=== PATIENT | female | born 1955 | race Caucasian/White ===

== ENCOUNTER 2017-03-29 14:37 | Inpatient (IN) | payer MEDICAID ==
[~2017-03-29] VITALS: Ht 160 cm; Wt 73.5 kg
[2017-03-29 14:39] VITALS: BP 186/81
[2017-03-29] MEDS ORDERED: FLUO-387 PO (14:43)
[2017-03-29] MEDS ORDERED: ORE25 PO (14:43)
[2017-03-29] MEDS ORDERED: ALBUTEROL 0.083% 2.5 MG/3 ML NEBU INH ONE ×3 (14:45→18:10)
[2017-03-29] MEDS ORDERED: IPRATROPIUM 0.02% 0.5 MG/2.5 ML NEBU INH ONE ×3 (14:45→18:10)
[2017-03-29 14:59] LABS: HEMATOCRIT 42.3 % (36-48); HEMOGLOBIN 13.6 g/dL (12.0-16.0); MEAN CORPUSCULAR HEMOGLOBIN 29 pg (27-31); MEAN CORPUSCULAR HGB CONC 32 g/dL (33-37); MEAN CORPUSCULAR VOLUME 90 fL (80-94); PLATELET COUNT (AUTO) 321 K/uL (140-450); RED BLOOD CELL COUNT(AUTO) 4.69 MIL/uL (4.20-5.40); RED CELL DISTRIBUTION WIDTH 12.5 % (11.6-13.7); WHITE BLOOD COUNT (AUTO) 17.2 K/uL (4.8-10.8)
[2017-03-29 15:10] LABS: BAND % (MANUAL) 8 % (0-8); EOSINOPHILS % (MANUAL) 3 % (0-4); LYMPHOCYTES % (MANUAL) 8 % (20-46); MONOCYTES % (MANUAL) 3 % (5-12); NEUTROPHILS % (MANUAL) 78 (43-65)
[2017-03-29 15:11] LABS: ANION GAP 11.4 (8-16); CALCIUM 9.7 mg/dL (8.5-10.1); CARBON DIOXIDE 29.3 mmol/L (21-32); CREATININE 0.8 mg/dL (0.6-1.3); POTASSIUM 3.7 mmol/L (3.5-5.1)
[2017-03-29 15:17] LABS: ALBUMIN 4.1 g/dL (3.4-5.0); TOTAL BILIRUBIN 0.7 mg/dL (0.0-1.0); TOTAL PROTEIN, SERUM 8.1 g/dL (6.4-8.2)
[2017-03-29] MEDS ORDERED: cefTRIAXone 2,000 MG in DEXTROSE 5% 100 ML IV ONE (17:00)
[2017-03-29] MEDS ORDERED: NACL 0.9% 1,000 ML IV ONE (17:00)
[2017-03-29] MEDS ORDERED: cefTRIAXone 2,000 MG VIAL ONE (17:12)
[2017-03-29] MEDS ORDERED: ACETAMINOPHEN 325 MG TAB PO PRN (18:00)
[2017-03-29] MEDS ORDERED: HYDROcodone/APAP 5/325 MG 1 TAB TAB PO PRN (18:00)
[2017-03-29] MEDS ORDERED: ONDANSETRON 4 MG/2 ML VIAL IVP PRN (18:00)
[2017-03-29 18:19] VITALS: BP 173/80
[2017-03-29 18:22] LABS: LACTIC ACID 4.6 mmol/L (0.4-2.0)
[2017-03-29] MEDS ORDERED: PIPER/TAZO 3.375GM/D5W PREMIX 50 ML IV SCH (18:35)
[2017-03-29 19:01] LABS: BLOOD GAS PH 7.273 (7.35-7.45)
[2017-03-29 19:02] LABS: BLOOD GAS BASE EXCESS -1.2 mmol/L (-2.0-2.0); BLOOD GAS HCO3 26.8 mmol/L; BLOOD GAS O2 SAT% 99.7 % (92.0-98.5); BLOOD GAS PCO2 59.2 mmHg (20-50); BLOOD GAS PO2 531.7 mmHg
[2017-03-29 19:08] LABS: FREE T4 (FREE THYROXINE) 0.73 ng/dL (0.76-1.46); THYROID STIMULATING HORMONE 2.38 uIU/mL (0.34-3.76)
[2017-03-29 19:40] VITALS: BP_SYST 137; BP_SYST 164; BP_DIAS 101; BP_DIAS 81
[2017-03-29] MEDS: NACL 0.9% 1,000 ML IV SCH (19:40)
[2017-03-29] MEDS ORDERED: PIPERACILLIN/TAZOBACTAM 3.375 GM VIAL IV ONE (20:41)
[2017-03-29 21:15] LABS: APPEARANCE,URINE CLEAR (CLEAR); BILIRUBIN,URINE NEGATIVE (NEGATIVE); BLOOD, URINE NEGATIVE (NEGATIVE); COLOR,URINE YELLOW (YELLOW); LEUKOCYTE ESTERASE ,URINE NEGATIVE (NEGATIVE); NITRITE, URINE NEGATIVE (NEGATIVE); PROTEIN,URINE NEGATIVE (NEGATIVE); UGLUCOSE NEGATIVE (NEGATIVE); UROBILINOGEN,URINE 0.2 EU/dL (0.2 - 1)
[2017-03-29 21:25] LABS: AMPHETAMINE, URINE NEG. ng/ml (NEG <=1000); BARBITURATE, URINE NEG. ng/ml (NEG <=200); BENZODIAZEPINE, URINE NEG. ng/mL (NEG <=200); CANNABINOID, URINE NEG. ng/mL (NEG <=50); COCAINE, URINE NEG. ng/mL (NEG <=300); OPIATE, URINE NEG. ng/mL (NEG <=2000); PHENCYCLIDINE SCREEN,URINE NEG. ng/mL (NEG <=25)
[2017-03-29 21:33] VITALS: BP 140/82
[2017-03-29] MEDS: ALBUTEROL SULFATE/IPRATROPIU 3 ML SOL IH SCH (21:33)
[2017-03-29 22:00] VITALS: BP 138/78
[2017-03-29 23:32] VITALS: BP 134/67
[2017-03-29] MEDS: PIPER/TAZO 3.375GM/D5W PREMIX 50 ML IV SCH (23:48)
[2017-03-30] VITALS (13 sets, daily range): BP systolic 112–168; BP diastolic 54–81
[2017-03-30] MEDS: ALBUTEROL SULFATE/IPRATROPIU 3 ML SOL IH PRN ×2 (03:28→23:14)
[2017-03-30] MEDS: PIPER/TAZO 3.375GM/D5W PREMIX 50 ML IV SCH ×4 (05:31→23:57)
[2017-03-30 06:26] LABS: BASOPHILS # (AUTO) 0.1 K/uL (0.00-0.22); BASOPHILS % (AUTO) 0.5 % (0.0-2.0); EOSINOPHILS # (AUTO) 0.4 K/uL (0-0.4); EOSINOPHILS % (AUTO) 2.5 % (0.0-4.0); HEMATOCRIT 36.4 % (36-48); HEMOGLOBIN 12.2 g/dL (12.0-16.0); LYMPHOCYTES # (AUTO) 1.4 K/uL (2.5-16.5); LYMPHOCYTES % (AUTO) 9.9 % (20.5-51.1); MEAN CORPUSCULAR HEMOGLOBIN 30 pg (27-31); MEAN CORPUSCULAR HGB CONC 34 g/dL (33-37); MEAN CORPUSCULAR VOLUME 90 fL (80-94); MONOCYTES % (AUTO) 7.2 % (1.7-9.3); NEUTROPHILS # (AUTO) 11.4 K/uL (1.8-7.7); NEUTROPHILS % (AUTO) 79.9 % (42.2-75.2); PLATELET COUNT (AUTO) 281 K/uL (140-450); RED BLOOD CELL COUNT(AUTO) 4.05 MIL/uL (4.20-5.40); RED CELL DISTRIBUTION WIDTH 12.5 % (11.6-13.7); WHITE BLOOD COUNT (AUTO) 14.3 K/uL (4.8-10.8)
[2017-03-30 06:29] LABS: ANION GAP 10.5 (8-16); CALCIUM 8.7 mg/dL (8.5-10.1); CARBON DIOXIDE 31.5 mmol/L (21-32); CREATININE 0.7 mg/dL (0.6-1.3)
[2017-03-30 06:33] LABS: PHOSPHORUS 4.2 mg/dL (2.5-4.9)
[2017-03-30 06:46] LABS: CHOL/HDL RATIO 3.2 (1-4.5)
[2017-03-30] MEDS: ALBUTEROL SULFATE/IPRATROPIU 3 ML SOL IH SCH ×4 (07:40→20:37)
[2017-03-30] MEDS: LACTOBACILLUS RHAMNOSUS GG 1 EACH CAP PO SCH ×2 (09:06→09:08)
[2017-03-30] MEDS: HYDROCHLOROTHIAZIDE 25 MG TAB PO SCH (09:08)
[2017-03-30] MEDS: DOCUSATE SODIUM 100 MG GELCAP PO SCH (09:08)
[2017-03-30] MEDS: NACL 0.9% 1,000 ML IV SCH ×2 (11:33→16:58)
[2017-03-30] MEDS ORDERED: methylPREDNISolone SS 125 MG/2 ML VIAL IVP SCH (21:35)
[2017-03-31] VITALS: BP 120/74
[2017-03-31] MEDS: NACL 0.9% 1,000 ML IV SCH ×3 (02:04→20:16)
[2017-03-31] MEDS: ALBUTEROL SULFATE/IPRATROPIU 3 ML SOL IH PRN ×2 (03:10→22:38)
[2017-03-31 04:39] VITALS: BP 12/72
[2017-03-31] MEDS: PIPER/TAZO 3.375GM/D5W PREMIX 50 ML IV SCH ×3 (05:45→17:26)
[2017-03-31] MEDS: methylPREDNISolone SS 125 MG/2 ML VIAL IVP SCH ×3 (05:46→21:53)
[2017-03-31] MEDS ORDERED: methylPREDNISolone SS 40 MG/ML VIAL ONE (05:48)
[2017-03-31 06:03] LABS: BASOPHILS # (AUTO) 0.1 K/uL (0.00-0.22); BASOPHILS % (AUTO) 0.9 % (0.0-2.0); EOSINOPHILS # (AUTO) 0.3 K/uL (0-0.4); EOSINOPHILS % (AUTO) 2.1 % (0.0-4.0); HEMATOCRIT 37.1 % (36-48); HEMOGLOBIN 12.5 g/dL (12.0-16.0); LYMPHOCYTES # (AUTO) 1.1 K/uL (2.5-16.5); LYMPHOCYTES % (AUTO) 8.5 % (20.5-51.1); MEAN CORPUSCULAR HEMOGLOBIN 30 pg (27-31); MEAN CORPUSCULAR HGB CONC 34 g/dL (33-37); MEAN CORPUSCULAR VOLUME 90 fL (80-94); MONOCYTES # (AUTO) 0.1 K/uL (0.8-1.0); MONOCYTES % (AUTO) 1.1 % (1.7-9.3); NEUTROPHILS # (AUTO) 11.5 K/uL (1.8-7.7); NEUTROPHILS % (AUTO) 87.4 % (42.2-75.2); PLATELET COUNT (AUTO) 296 K/uL (140-450); RED BLOOD CELL COUNT(AUTO) 4.12 MIL/uL (4.20-5.40); RED CELL DISTRIBUTION WIDTH 12.7 % (11.6-13.7); WHITE BLOOD COUNT (AUTO) 13.1 K/uL (4.8-10.8)
[2017-03-31 06:22] LABS: ANION GAP 10.9 (8-16); CALCIUM 8.8 mg/dL (8.5-10.1); CARBON DIOXIDE 30.5 mmol/L (21-32); CREATININE 0.7 mg/dL (0.6-1.3); POTASSIUM 4.4 mmol/L (3.5-5.1)
[2017-03-31] MEDS: ALBUTEROL SULFATE/IPRATROPIU 3 ML SOL IH SCH ×4 (07:15→19:29)
[2017-03-31 08:00] VITALS: BP 127/62
[2017-03-31 08:09] LABS: PHOSPHORUS 3.2 mg/dL (2.5-4.9)
[2017-03-31 08:58] LABS: BLOOD GAS BASE EXCESS 3.6 mmol/L (-2.0-2.0); BLOOD GAS HCO3 29.5 mmol/L; BLOOD GAS PCO2 49.7 mmHg (20-50); BLOOD GAS PH 7.391 (7.35-7.45); BLOOD GAS PO2 53.1 mmHg
[2017-03-31] MEDS: DOCUSATE SODIUM 100 MG GELCAP PO SCH (09:12)
[2017-03-31] MEDS: HYDROCHLOROTHIAZIDE 25 MG TAB PO SCH (09:13)
[2017-03-31] MEDS ORDERED: LACTOBACILLUS RHAMNOSUS GG 1 EACH CAP PO SCH (09:19)
[2017-03-31 12:00] VITALS: BP 136/74
[2017-03-31 16:00] VITALS: BP 147/66
[2017-03-31 20:39] VITALS: BP 138/68
[2017-04-01] MEDS: PIPER/TAZO 3.375GM/D5W PREMIX 50 ML IV SCH ×3 (00:13→12:03)
[2017-04-01 00:42] VITALS: BP 113/55
[2017-04-01] MEDS: NACL 0.9% 1,000 ML IV SCH ×2 (05:22→13:48)
[2017-04-01] MEDS: methylPREDNISolone SS 125 MG/2 ML VIAL IVP SCH ×2 (05:56→13:40)
[2017-04-01 06:02] LABS: BASOPHILS # (AUTO) 0.1 K/uL (0.00-0.22); BASOPHILS % (AUTO) 0.6 % (0.0-2.0); EOSINOPHILS # (AUTO) 0.3 K/uL (0-0.4); EOSINOPHILS % (AUTO) 1.7 % (0.0-4.0); HEMATOCRIT 35.6 % (36-48); HEMOGLOBIN 11.8 g/dL (12.0-16.0); LYMPHOCYTES # (AUTO) 1.3 K/uL (2.5-16.5); LYMPHOCYTES % (AUTO) 7.2 % (20.5-51.1); MEAN CORPUSCULAR HEMOGLOBIN 30 pg (27-31); MEAN CORPUSCULAR HGB CONC 33 g/dL (33-37); MEAN CORPUSCULAR VOLUME 91 fL (80-94); MONOCYTES # (AUTO) 0.5 K/uL (0.8-1.0); MONOCYTES % (AUTO) 2.8 % (1.7-9.3); NEUTROPHILS # (AUTO) 16.1 K/uL (1.8-7.7); NEUTROPHILS % (AUTO) 87.7 % (42.2-75.2); PLATELET COUNT (AUTO) 312 K/uL (140-450); RED BLOOD CELL COUNT(AUTO) 3.92 MIL/uL (4.20-5.40); RED CELL DISTRIBUTION WIDTH 12.3 % (11.6-13.7)
[2017-04-01 07:00] LABS: ANION GAP 8.1 (8-16); CARBON DIOXIDE 32.1 mmol/L (21-32); CREATININE 0.6 mg/dL (0.6-1.3); POTASSIUM 4.2 mmol/L (3.5-5.1)
[2017-04-01] MEDS: ALBUTEROL SULFATE/IPRATROPIU 3 ML SOL IH SCH (07:00)
[2017-04-01 07:05] LABS: MAGNESIUM 2.1 mg/dL (1.8-2.4); PHOSPHORUS 3.9 mg/dL (2.5-4.9)
[2017-04-01 07:11] LABS: WHITE BLOOD COUNT (AUTO) 18.3 K/uL (4.8-10.8)
[2017-04-01 08:00] VITALS: BP 138/83
[2017-04-01] MEDS: DOCUSATE SODIUM 100 MG GELCAP PO SCH (09:00)
[2017-04-01] MEDS: HYDROCHLOROTHIAZIDE 25 MG TAB PO SCH (09:03)
[2017-04-01] MEDS: LACTOBACILLUS RHAMNOSUS GG 1 EACH CAP PO SCH (09:03)
[2017-04-01] MEDS ORDERED: PRED5TAB8 PO (14:47)
[2017-04-01] MEDS ORDERED: PRED20TA6 PO (14:47)
[2017-04-01] MEDS ORDERED: PRED10TA6 PO (14:47)
[2017-04-01] MEDS ORDERED: PRED10TA5 PO (14:47)
[2017-04-01] MEDS ORDERED: SACC250C4 PO (14:52)
[2017-04-01] MEDS ORDERED: CLIN300C2 PO (14:52)
[2017-04-01] MEDS ORDERED: LEVO750T2 PO (14:52)
[2017-04-01] MEDS ORDERED: ALBU0.0912 IH (14:53)
[2017-04-01] MEDS ORDERED: BUDE90PO IH (14:54)
[2017-04-01] MEDS ORDERED: methylPREDNISolone SS 40 MG/ML VIAL IVP SCH (21:00)
== END 2017-04-01 16:05 | disposition home or self-care (01) | DRG 720 ==
LOC: MED 14:37 → MTU 17:56 → MIC 20:26 → MTU 03-30 19:55
PROVIDERS: ADMIT Student in an Organized Health Care Education/Training Program; ATTEND Student in an Organized Health Care Education/Training Program
PROC: 5A09357 Assistance with Respiratory Ventilation, Less than 24 Consecutive Hours, Continuous Positive Airway Pressure (ICD-10-PCS; principal; 2017-03-29)
DX: A41.9 Sepsis, unspecified organism (principal); N17.0 Acute kidney failure with tubular necrosis; J96.01 Acute respiratory failure with hypoxia; J69.0 Pneumonitis due to inhalation of food and vomit; J44.1 Chronic obstructive pulmonary disease with (acute) exacerbation; I10 Essential (primary) hypertension; E02 Subclinical iodine-deficiency hypothyroidism; E11.9 Type 2 diabetes mellitus without complications; F41.9 Anxiety disorder, unspecified; Z98.82 Breast implant status; Z90.710 Acquired absence of both cervix and uterus; Z98.49 Cataract extraction status, unspecified eye; Z90.49 Acquired absence of other specified parts of digestive tract; Z79.899 Other long term (current) drug therapy; Z87.891 Personal history of nicotine dependence; Z80.1 Family history of malignant neoplasm of trachea, bronchus and lung; Z82.5 Family history of asthma and other chronic lower respiratory diseases; Z83.3 Family history of diabetes mellitus
CPT/HCPCS: 36415; 36600; 71010; 71260; 80048; 80053; 80305; 81003; 82553; 82803; 83036; 83605; 83690; 83735; 83880; 84100; 84439; 84443; 84484; 85025; 87040; 87081; 93005; 94640; 94644; 94660; 96365; 99291; J0696; J1644; J2543; J2920; J2930; J7030; J7060; J7613; J7620; J7644; Q9967